=== PATIENT | male | born 1950 | race Caucasian/White ===

== ENCOUNTER 2020-10-30 05:35 | Outpatient (CLI) | payer MEDICARE, OTHER ==
[~2020-10-30] VITALS: Ht 182.9 cm; Wt 75.0 kg
[~2020-10-30 05:35] MED LIST: ATR20T; ESOM20SU; VIT E
[2020-10-30] MEDS ORDERED: ATOR20TA66 PO (08:40)
== END 2020-10-30 08:42 | disposition home or self-care (01) ==
LOC: PREOP 05:35
PROVIDERS: ATTEND Specialist
DX: Z01.818 Encounter for other preprocedural examination (principal)

== ENCOUNTER 2020-11-02 10:05 | Day surgery (SDC) | payer MEDICARE, OTHER ==
[~2020-11-02] VITALS: Ht 182 cm; Wt 75.0 kg
[~2020-11-02 10:05] MED LIST changes: +ATOR20TA66 PO
[2020-11-02] MEDS ORDERED: TROPICAMIDE 1% OPH SOLN (MYDRIACYL) 15 ML BTL OU PRN (10:15)
[2020-11-02] MEDS ORDERED: PHENYLEPHRINE 10% OPHTH (NEO-SYN) 5 ML BTL OU PRN (10:15)
[2020-11-02] MEDS ORDERED: TETRACAINE 0.5% OPHTH SOLN 4 ML BTL (SINGLE DOSE ONLY) OU PRN (10:15)
--- NOTE | 2020-11-02 10:24 | Ophthalmologist Pre-Op Note ---
Pre-Operative Progress Note H&P Reviewed The H&P was reviewed, patient examined and no changes noted. Date H&P Reviewed: Nov 02, 2020 Time H&P Reviewed: 10:24 Pre-Op Dx Secondary Cataract, Bilateral Eyes JOSÉ MGIUEL FAUST MD Nov 02, 2020 10:24
[2020-11-02 10:25] VITALS: BP 128/80
--- NOTE | 2020-11-02 11:04 | Ophthalmology Operative Report ---
YAG Capsulotomy PREOPERATIVE DIAGNOSIS: Secondary Cataract Bilateral POSTOPERATIVE DIAGNOSIS: Secondary Cataract Bilateral PROCEDURE: YAG Capsulotomy, Bilateral SURGEON: August Faust ANESTHESIA: Topical anesthesia COMPLICATIONS: None ESTIMATED BLOOD LOSS: Minimal DESCRIPTION OF PROCEDURE: After proper informed consent was obtained, the patient's, a [id number] male , received one drop of Tropicamide and one drop of Tetracaine in each eye. The patient was then placed at the YAG laser and using a power of [ 3.6] millijoules and bursts [ 15] right eye and [17 ] left eye were used to fashion a central capsulotomy. The patient tolerated the procedure well without complications. AUGUST FAUST MD Nov 02, 2020 11:04
== END 2020-11-02 11:07 ==
LOC: SDC 10:05
PROVIDERS: ATTEND Specialist
DX: H26.493 Other secondary cataract, bilateral (principal); K21.9 Gastro-esophageal reflux disease without esophagitis; M19.90 Unspecified osteoarthritis, unspecified site; Z87.891 Personal history of nicotine dependence